=== PATIENT | female | born 1960 ===

== ENCOUNTER 2017-12-30 06:00 | Day surgery (SDC) | payer MEDICARE, MEDICAID ==
[2017-07-06 19:27] VITALS: BMI 27.3
[2017-12-30] MEDS ORDERED: (Novolin R) Insulin Human Regular 100 units/ml vial IV ONE (07:39)
[2017-12-30] MEDS ORDERED: (Novolin R) Insulin Human Regular 100 units/ml vial ONE (07:51)
[2017-12-30] MEDS ORDERED: Sodium Chloride 0.9% 500 ML IV SCH (08:00)
[2017-12-30] MEDS ORDERED: Propofol 10 mg/ml Inj (20 ML) ONE (08:36)
--- NOTE | 2017-12-30 08:38 | CP.SDSHP ---
Same Day Surgery H & P - History Proposed Procedure: EGD Pre-Op Diagnosis: esophageal varices - Previous Medical/Surgical History Cardiac: Hypertension Endocrine/Metabolic: Thyroid Disease, Diabetes Comments: cirrhosis - Allergies Allergies: Allergies No Known Allergies Allergy (Verified 12/29/17 12:42) - Current Medications Current Medications: reviewed, per reconciliation - Physical Exam General Appearance: wdwn nad Vital Signs: Vital Signs 12/30/17 06:37 Temperature 97.1 F L Pulse Rate 59 L Respiratory 19 Rate Blood Pressure 136/64 O2 Sat by Pulse 99 Oximetry Mental Status: Alert & Oriented x3 Heart: WNL Lungs: WNL GI: WNL - {Optional Preform as Required} Abdomen: WNL - Impression Impression: esophageal varices Pt. Evaluated Today:Candidate for Anesthesia & Procedure: Yes - Date & Time Date: 12/30/17 Time: 08:38 Short Stay Discharge - Short Stay Discharge Admitting Diagnosis/Reason for Visit: ANEMIA Disposition: HOME/ ROUTINE
[2017-12-30 10:21] VITALS: BP 117/54; PULSE 62; RESP 17; TEMP 97.3; O2SAT 99
[2017-12-30 10:30] LABS: HEMOGLOBIN 11.2 g/dL (11.0-16.0); MEAN CELL VOLUME 82.5 fL (81.0-99.0); MEAN CORPUSCULAR HEMOGLOBIN 27.9 pg (27.0-31.0); MEAN CORPUSCULAR HGB CONC 33.8 g/dL (33.0-37.0); MEAN PLATELET VOLUME 10.2 fL (7.2-11.7); RBC 4.02 Mil/uL (3.80-5.20); RED CELL DISTRIBUTION WIDTH 14.5 % (11.5-14.5); WHITE BLOOD COUNT 3.4 K/uL (4.8-10.8)
[2017-12-30 10:36] LABS: INR 1.2; PROTHROMBIN TIME 12.7 SECONDS (9.7-12.2)
[2017-12-30 10:46] LABS: BLOOD UREA NITROGEN 10 mg/dL (7-17); GFR AFRICAN-AMERICAN > 60; GFR NON-AFRICAN AMERICAN > 60
[2017-12-30 10:47] LABS: ALB/GLOB RATIO 0.9 (1.0-2.1); ALBUMIN 3.7 g/dL (3.5-5.0); ALT/SGPT 32 U/L (9-52); AST/SGOT 29 U/L (14-36); CALCIUM 8.9 mg/dl (8.6-10.4)
== END 2017-12-30 09:45 | disposition home or self-care (01) ==
LOC: C.ENDO 06:00
PROVIDERS: ATTEND Internal Medicine Gastroenterology
DX: I85.00 Esophageal varices without bleeding (principal); K74.69 Other cirrhosis of liver; K76.6 Portal hypertension; I86.4 Gastric varices
CPT/HCPCS: 36415; 43235; 80053; 82105; 82948; 85027; 85610; 86706; 86708; 87521; J2001; J2704; J7040

== ENCOUNTER 2018-03-25 18:04 | Emergency (ER) | payer MEDICARE, MEDICAID ==
[2018-03-25 18:04] VITALS: BMI 27.3
[2018-03-25 18:34] VITALS: O2SAT 99
[2018-03-25 19:09] LABS: BASO % 0.4 % (0.0-2.0); EOS % 1.3 % (0.0-4.0); HEMOGLOBIN 11.4 g/dL (11.0-16.0); LYMPH % 31.9 % (20.0-40.0); MEAN CELL VOLUME 83.1 fL (81.0-99.0); MEAN CORPUSCULAR HEMOGLOBIN 28.3 pg (27.0-31.0); MEAN PLATELET VOLUME 9.5 fL (7.2-11.7); MONO # 0.4 K/uL (0.0-0.8); MONO % 13.2 % (0.0-10.0); NEUT # 1.7 K/uL (1.8-7.0); NEUT % 53.2 % (50.0-75.0); NRBC % 0.1 % (0.0-2.0); RBC 4.03 Mil/uL (3.80-5.20); RED CELL DISTRIBUTION WIDTH 15.6 % (11.5-14.5); WHITE BLOOD COUNT 3.2 K/uL (4.8-10.8)
[2018-03-25 19:11] LABS: INR 1.2; PROTHROMBIN TIME 13.2 SECONDS (9.7-12.2)
[2018-03-25] MEDS ORDERED: Sodium Chloride 0.9% 1,000 ML IV STA (19:13)
[2018-03-25 19:16] LABS: ALBUMIN 3.9 g/dL (3.5-5.0); ALT/SGPT 30 U/L (9-52); AST/SGOT 34 U/L (14-36); BLOOD UREA NITROGEN 9 mg/dL (7-17); CALCIUM 9.2 mg/dl (8.6-10.4); GFR NON-AFRICAN AMERICAN > 60
[2018-03-25] MEDS ORDERED: Sodium Chloride 0.9% 1,000 ML ONE (19:27)
[2018-03-25] MEDS ORDERED: Iodixanol 320 MG/ML 100 ML BOTTLE IV ONE (19:43)
[2018-03-25 20:18] LABS: SQUAMOUS EPITHIAL 1 /hpf (0-5); URINE AMORPHOUS SEDIMENT MODERATE /ul (<OCC); URINE BILIRUBIN NEGATIVE (NEGATIVE); URINE BLOOD NEGATIVE (NEGATIVE); URINE CLARITY Hazy (Clear); URINE COLOR Yellow (YELLOW); URINE GLUCOSE (UA) 1+ mg/dL (Normal); URINE LEUKOCYTE ESTERASE NEG Leu/uL (Negative); URINE PROTEIN NEGATIVE (NEGATIVE)
[2018-03-25 20:26] LABS: HCG,QUALITATIVE URINE NEGATIVE (NEGATIVE)
--- NOTE | 2018-03-25 21:29 | C.PDOC ---
History Of Present Illness 57 year old female with liver cirrhosis, hepatitis C (treated), DM, and hypothyroid presenting with diffuse abdominal pain (L>R) that began 6 days ago. Associated with lose and frequent stools, 10+ episodes per day. Patient also com plains of chills. Reports recent travel to [place] one month ago for one week and then to [place] where she has been for the past 3 weeks. Patient denies fever, nausea, vomiting, dysuria, hematuria, hematochezia. <Chica Pinto P - Last Filed: 03/25/18 21:49> <Chica Pinto P - Last Filed: 03/25/18 21:49> <Irineo Pina T - Last Filed: 03/25/18 23:45> Time Seen by Provider: 03/25/18 18:53 Chief Complaint (Nursing): Abdominal Pain Past Medical History Vital Signs: Last Vital Signs Temp 98.3 F 03/25/18 18:23 Pulse 73 03/25/18 18:23 Resp 18 03/25/18 18:23 BP 163/77 H 03/25/18 18:23 Pulse Ox 99 03/25/18 21:29 - [facility] Procedures C.A.T. SCAN OF ABDOMEN (09/07/13) INTRODUCTION OF SERUM/TOX/VACCINE INTO MUSCLE, PERC APPROACH (03/08/16) PERCUTAN NEEDLE BX OF LIVER (09/07/13) <Chica Pinto P - Last Filed: 03/25/18 21:49> Vital Signs: Last Vital Signs Temp 98.3 F 03/25/18 18:23 Pulse 73 03/25/18 18:23 Resp 18 03/25/18 18:23 BP 163/77 H 03/25/18 18:23 Pulse Ox 99 03/25/18 18:23 - Medical History PMH: Anemia (on iron infusions for 10 weeks), Arthritis, Back Problems, Depression (NO MEDS), Diabetes (type I and II), Gastritis, Gall Bladder Disease, Hepatitis (C w/cirrhosis), HTN, Hypothyroidism Denies: Fractures, Chronic Kidney Disease Surgical History: Appendectomy, Cholecystectomy, (x3) Denies: Pacemaker - [facility] Procedures C.A.T. SCAN OF ABDOMEN (09/07/13) INTRODUCTION OF SERUM/TOX/VACCINE INTO MUSCLE, PERC APPROACH (03/08/16) PERCUTAN NEEDLE BX OF LIVER (09/07/13) Family History: States: Unknown Family Hx, Diabetes - Social History Hx Tobacco Use: No Hx Alcohol Use: No Hx Substance Use: No - Immunization History Hx Tetanus Toxoid Vaccination: No Hx Influenza Vaccination: Yes Hx Pneumococcal Vaccination: No <Irineo Pina T - Last Filed: 03/25/18 23:45> Review Of Systems Constitutional: Positive for: Chills. Negative for: Fever, Sweats Cardiovascular: Negative for: Chest Pain, Palpitations Gastrointestinal: Positive for: Abdominal Pain, Diarrhea (lose BM). Negative for: Nausea, Vomiting Genitourinary: Negative for: Dysuria, Frequency Musculoskeletal: Negative for: Neck Pain, Shoulder Pain Neurological: Negative for: Weakness, Dizziness <Chica Pinto P - Last Filed: 03/25/18 21:49> Physical Exam - Physical Exam Appears: Non-toxic, No Acute Distress Skin: Normal Color, Warm, Dry Head: Atraumatic, Normacephalic Eye(s): bilateral: Normal Inspection, PERRL, EOMI Throat: Normal Neck: Normal ROM Cardiovascular: Rhythm Regular, No Rhythm Irregular, No Friction Rub, No Murmur, No JVD Respiratory: Normal Breath Sounds, No Decreased Breath Sounds, No Rales, No Rhonchi, No Wheezing Gastrointestinal/Abdominal: Bowel Sounds (normal), Soft, Tenderness (diffuse tenderness), No Guarding, No Rebound, Other (negative McBurney's, negative Stanford, negative CVA tenderness) Extremity: Normal ROM, No Tenderness, No Pedal Edema Neurological/Psych: Oriented x3, Normal Speech, Normal Cranial Nerves (grossly), Normal Motor (grossly) <Chica Pinto P - Last Filed: 03/25/18 21:49> ED Course And Treatment - Laboratory Results Result Diagrams: 03/25/18 18:57 03/25/18 18:57 <Chica Pinto P - Last Filed: 03/25/18 21:49> - Laboratory Results Result Diagrams: 03/25/18 18:57 03/25/18 18:57 O2 Sat by Pulse Oximetry: 99 <Irineo Pina T - Last Filed: 03/25/18 23:45> Medical Decision Making Medical Decision Making: CT - Abd & Pelv. Results CLINICAL HISTORY: Abdominal pain and diarrhea. TECHNIQUE: Multiple axial, coronal, sagittal CT images were obtained through the abdomen and pelvis after administration of intravenous contrast material. 100 ml VISI 320. DLP 684.23. COMMENTS: The liver is markedly lobulated and enlarged consistent with cirrhosis. There is no intra or extrahepatic biliary ductal dilatation. The spleen is mildly enlarged measures 13 cm in length. The patient is status post cholecystectomy. The pancreas is of normal contour and attenuation characteristics. There is no evidence of adrenal mass. Both kidneys are markedly lobulated. There is no evidence of renal mass. There is a 4 mm cyst present in the lower pole of the right kidney. There is no evidence of hydronephrosis or renal calculus. No evidence for appendicitis. There are fluid filled thick wall loops of ileum present consistent with ileitis. Consultation with GI service is recommended and follow-up with colonoscopy, to exclude Crohns disease. No evidence for small or large bowel obstruction. There is no evidence of abdominal ascites or lymphadenopathy. The uterus and ovaries are grossly normal. There is no evidence of intrinsic or extrinsic bladder mass. There is no pelvic ascites or lymphadenopathy. Images of the lung bases show no evidence of pleural or parenchymal mass. There are no pleural effusions. The bony structures are free of lytic or blastic lesions. There are large herniated discs noted at L4-L5 and L5-S1 with biforaminal canal stenosis. IMPRESSION: 1. The liver is markedly lobulated and enlarged consistent with cirrhosis. 2. Mild splenomegaly. 3. Status post cholecystectomy. 4. Both kidneys are markedly lobulated. 5. Cyst present in the lower pole of the right kidney. 6. Ileitis. Consultation with GI service is recommended and follow-up with colonoscopy, to exclude Crohns disease. 7. Large herniated discs noted at L4-L5 and L5-S1 with biforaminal canal stenosis. Seen and examined with resident. 57 y/o F p/w diarrhea. On exam, diffuse mild abdominal tenderness. Discharged on antibiotics, f/u PMD, return to ED for worsening pain, fever, bleeding, or any other problem. <Irineo Pina T - Last Filed: 03/25/18 23:45> Disposition - Disposition Disposition Time: 21:30 <Chica Pinto P - Last Filed: 03/25/18 21:49> <Irineo Pina T - Last Filed: 03/25/18 23:45> - Disposition Referrals: China Moreno MD [Medical Doctor] - Disposition: HOME/ ROUTINE Condition: STABLE Additional Instructions: You have been diagnosed with ileitis, an inflammation of your small bowel, likely due to bacterial infection. You are being discharged on the following medications: Ciprofloxacin 500mg by mouth every 12 hours for 10 days Metronidazole 500mg by mouth every 8 hours for 10 days Please follow up with your PMD within one week. Return to the ED for new or worsening symptoms Prescriptions: Ciprofloxacin 500 mg PO BID #20 ml Metronidazole 500 mg PO TID #30 tablet Instructions: Diarrhea and Traveler's Diarrhea, Adult (DC) Forms: [facility] (Spanish), Work Note - Clinical Impression Clinical Impression: Ileitis
[2018-03-25 22:14] VITALS: BP 154/70; PULSE 89; RESP 20; TEMP 97.8
--- NOTE | 2018-03-26 09:24 | CT ---
Date of service: 03/25/2018 PROCEDURE: CT Abdomen and Pelvis with contrast HISTORY: abd pain, diarrhea COMPARISON: CT abdomen and pelvis without and with IV contrast performed 06/29/14, abdominal ultrasound performed 11/06/17 TECHNIQUE: Contrast dose: 100 mL Visipaque 320 Radiation dose: Total exam DLP = 684.23 mGy-cm. This CT exam was performed using one or more of the following dose reduction techniques: Automated exposure control, adjustment of the mA and/or kV according to patient size, and/or use of iterative reconstruction technique. FINDINGS: LOWER THORAX: No visible consolidation, pleural effusion, or pneumothorax. 1.5 x 2.2 cm fat density (-26 HU) along the right pericardial wall. LIVER: Hepatomegaly. Nodular hepatic contour. Heterogeneous hepatic parenchyma. GALLBLADDER AND BILE DUCTS: Cholecystectomy. PANCREAS: Unremarkable. SPLEEN: Splenomegaly. ADRENALS: Unremarkable. KIDNEYS AND URETERS: The kidneys enhance symmetrically. Mildly lobulated contours. No hydronephrosis or obstructing calculus identified. Too small to characterize right renal hypodensities, statistically likely cysts. VASCULATURE: No aortic aneurysm. No atherosclerotic calcified plaque present. BOWEL: Stomach is nondistended. Lack of oral contrast limits evaluation for bowel pathology. Bowel loops appear within normal limits of caliber without evidence of obstruction. Question presence of minimal small bowel wall thickening, possibly exaggerated due to lack of oral contrast/distension. APPENDIX: The appendix is not identified; correlate for history of appendectomy. No secondary signs of acute appendicitis. PERITONEUM: No significant free fluid. No definite free air. LYMPH NODES: Mesenteric adenopathy measuring up to approximately 9 mm in short axis. BLADDER: Decompressed urinary bladder. REPRODUCTIVE: The uterus is present. Prominent pelvic vasculature, may be related to pelvic congestion syndrome. BONES: Multilevel degenerative changes. Posterior osteophyte at L4-L5 with narrowing of the spinal canal. OTHER FINDINGS: None. IMPRESSION: Question presence of minimal small bowel wall thickening, possibly exaggerated due to lack of oral contrast/distension. Correlate clinically. Hepatomegaly. Heterogeneous hepatic parenchyma. Nodular hepatic contour. Correlate clinically for cirrhosis. Splenomegaly. Mesenteric adenopathy measuring up to approximately 9 mm in short axis. Cholecystectomy. Prominent pelvic vasculature may be related to pelvic congestion syndrome. 1.5 x 2.2 cm fat density nodule along the right pericardial wall. Additional findings as above. Preliminary impression was provided by [facility]. Study marked for PA review.
== END 2018-03-25 22:14 | disposition home or self-care (01) ==
LOC: C.ER 18:04
DX: K52.9 Noninfective gastroenteritis and colitis, unspecified (principal)
CPT/HCPCS: 74177; 80053; 81001; 82140; 83690; 83735; 84100; 84703; 85025; 85610; 85730; 96360; 96361; 99285; J7030; Q9967

== ENCOUNTER 2018-07-05 08:58 | Emergency (ER) | payer MEDICARE, MEDICAID ==
[2018-07-05 08:58] VITALS: BMI 27.3
[2018-07-05] MEDS ORDERED: Sodium Chloride 0.9% 1,000 ML IV ONE (09:53)
--- NOTE | 2018-07-05 09:53 | C.PDOC ---
History Of Present Illness 57 year old female with liver cirrhosis, hepatitis C, DM, and hypothyroid presenting with upper and mid-abdominal pain that started yesterday. She reports associated nausea and vomiting. She also complains of chills. She reports last bowel movement was yesterday, normal and non-bloody. Patient denies fever, dysuria, hematuria. PCP: China Moreno GI: Jacques Nolasco Time Seen by Provider: 07/05/18 09:37 Chief Complaint (Nursing): Abdominal Pain History Per: Patient History/Exam Limitations: no limitations Onset/Duration Of Symptoms: Days Current Symptoms Are (Timing): Still Present Severity: Moderate Associated Symptoms: Chills, Nausea, Vomiting. denies: Fever, Urinary Symptoms Past Medical History Reviewed: Historical Data, Nursing Documentation, Vital Signs Vital Signs: Last Vital Signs Temp 98.7 F 07/05/18 09:05 Pulse 110 H 07/05/18 09:05 Resp 20 07/05/18 09:05 BP 124/83 07/05/18 09:05 Pulse Ox 98 07/05/18 09:05 - Medical History PMH: Anemia, Arthritis, Back Problems, Depression, Diabetes (type I and II), Gastritis, Gall Bladder Disease, Hepatitis (C w/cirrhosis), HTN, Hypothyroidism Denies: Fractures, Chronic Kidney Disease Surgical History: Appendectomy, Cholecystectomy, (x3) Denies: Pacemaker - [facility] Procedures C.A.T. SCAN OF ABDOMEN (09/07/13) INTRODUCTION OF SERUM/TOX/VACCINE INTO MUSCLE, PERC APPROACH (03/08/16) PERCUTAN NEEDLE BX OF LIVER (09/07/13) Family History: States: Diabetes - Social History Hx Tobacco Use: No Hx Alcohol Use: No Hx Substance Use: No - Immunization History Hx Tetanus Toxoid Vaccination: No Hx Influenza Vaccination: Yes Hx Pneumococcal Vaccination: No Review Of Systems Except As Marked, All Systems Reviewed And Found Negative. Constitutional: Positive for: Chills. Negative for: Fever Gastrointestinal: Positive for: Nausea, Vomiting, Abdominal Pain Genitourinary: Negative for: Dysuria, Hematuria Physical Exam - Physical Exam Appears: Non-toxic, No Acute Distress Skin: Normal Color, Warm, Dry, No Diaphoretic, No Jaundice, No Cyanotic Head: Atraumatic, Normacephalic Eye(s): bilateral: Normal Inspection, EOMI Nose: Normal Oral Mucosa: Moist Neck: Supple Chest: Symmetrical Cardiovascular: Rhythm Regular Respiratory: Normal Breath Sounds, No Rales, No Rhonchi, No Wheezing Gastrointestinal/Abdominal: Normal Exam, Soft, Tenderness (epigastric), No Mass, No Guarding, No Rebound Neurological/Psych: Oriented x3, Normal Speech ED Course And Treatment - Laboratory Results Result Diagrams: 07/05/18 11:04 07/05/18 11:04 O2 Sat by Pulse Oximetry: 98 (RA) Pulse Ox Interpretation: Normal - CT Scan/US CT Abdomen/Pelvis Other Rad Studies (CT/US): Read By Radiologist, Radiology Report Reviewed CT/US Interpretation: Accession No. : [id number]. Patient Name / ID : MARIAN YOUNG / [id number]. Exam Date : 07/05/2018 12:23:24 ( Approved ). Study Comment : Sex / Age : F / 57Y. Creator : Becky Garcia. Dictator : Santiago Del Toro MD. Credit Collection Associate : Information Systems Manager : Santiago Del Toro MD. Approver2 : Report Date : 07/05/2018 12:35:45. My Comment : . Date of service: 07/05/2018. PROCEDURE: CT Abdomen and Pelvis with contrast. HISTORY: abd pain upper, epgiastric. COMPARISON: 03/25/2018. TECHNIQUE: Contrast dose: 100 mL Visipaque 320. Radiation dose: Total exam DLP = 484.08 mGy-cm. This CT exam was performed using one or more of the following dose reduction techniques: Automated exposure control, adjustment of the mA and/or kV according to patient size, and/or use of iterative reconstruction technique. FINDINGS: LOWER THORAX: Unremarkable. LIVER: Nodular contour consistent with hepatic cirrhosis. Normal size and attenuation. No mass. No biliary ductal dilatation. GALLBLADDER AND BILE DUCTS: Status post cholecystectomy. PANCREAS: Unremarkable. No gross lesion or ductal dilatation. SPLEEN: Upper limits normal in size. No mass. ADRENALS: Unremarkable. No mass. KIDNEYS AND URETERS: Unremarkable. No hydronephrosis. No solid mass. VASCULATURE: Unremarkable. No aortic aneurysm. No aortic atherosclerotic calcification or mural plaque present. BOWEL: Unremarkable. No obstruction. No gross mural thickening. APPENDIX: Not identified. No secondary findings to suggest acute appendicitis. PERITONEUM: Unremarkable. No free fluid. No free air. LYMPH NODES: Few mildly enlarged retroperitoneal nodes. Numerous subcentimeter nodes within the small bowel mesenteric common nonspecific. No pelvic lymphadenopathy. BLADDER: Unremarkable. REPRODUCTIVE: Normal uterus. BONES: No acute fracture. OTHER FINDINGS: None. IMPRESSION: No acute abnormality. Findings consistent with hepatic cirrhosis. Status post cholecystectomy. Minimal retroperitoneal lymph adenopathy. Shotty subcentimeter nodes in the small bowel mesenteric. No change from 03/25/2018. Medical Decision Making Medical Decision Making: Impression: Abdominal Pain Plan: * Labs * UA * CT - Abd & Pelv. * Pepcid IV * Reglan IV * Toradol IV * IV Fluids Labs reviewed with elevated LFT and bilrubin, not acute. Glucose also elevated. No leukocytosis. CT reviewed shows no acute surgical pathology or infectious process. On re-evaluation, the patient was resting comfortable on stretcher in no distress and reported feeling better. She had no fever and stable vital signs. Abdomen soft without guarding or distension. I discussed results with patient and provided copy of CT and lab results. Plan is to discharge home and have patient follow up with PCP and GI Disposition Counseled Patient/Family Regarding: Diagnosis, Need For Followup, Rx Given - Disposition Referrals: Ramu Flores MD [Staff Provider] - China Moreno MD [Medical Doctor] - Disposition: HOME/ ROUTINE Disposition Time: 14:04 Condition: IMPROVED Additional Instructions: Por favor, tome la medicina segn sea necesario para el dolor seguimiento con burch mdico Prescriptions: Naproxen [Naprosyn] 1 tab PO BID PRN #25 tab PRN Reason: Pain Pantoprazole [Protonix EC Tab] 20 mg PO DAILY #30 ect Instructions: Acute Abdomen (Belly Pain), Adult (DC) Forms: [employer] (Icelandic) Print Language: RUSSIAN - POA Present On Arrival: Poor Glycemic Control - Clinical Impression Clinical Impression: Abdominal pain - PA / VENEER SORTER / Resident Statement MD/DO has reviewed & agrees with the documentation as recorded. - Scribe Statement The provider has reviewed the documentation as recorded by the Scribe Jacquie Lopez Provider Attestation All medical record entries made by the Harryibrajinder were at my direction and personally dictated by me. I have reviewed the chart and agree that the record accurately reflects my personal performance of the history, physical exam, medical decision making, and the department course for this patient. I have also personally directed, reviewed, and agree with the discharge instructions and disposition.
[2018-07-05] MEDS ORDERED: Sodium Chloride 0.9% 1,000 ML ONE (10:39)
[2018-07-05 11:16] LABS: BASO % 0.3 % (0.0-2.0); EOS % 0.2 % (0.0-4.0); HEMOGLOBIN 12.1 g/dL (11.0-16.0); LYMPH # 0.6 K/uL (1.0-4.3); LYMPH % 13.9 % (20.0-40.0); MEAN CELL VOLUME 83.4 fL (81.0-99.0); MEAN CORPUSCULAR HEMOGLOBIN 27.7 pg (27.0-31.0); MEAN CORPUSCULAR HGB CONC 33.2 g/dL (33.0-37.0); MEAN PLATELET VOLUME 10.5 fL (7.2-11.7); MONO # 0.3 K/uL (0.0-0.8); MONO % 7.8 % (0.0-10.0); NEUT # 3.2 K/uL (1.8-7.0); NEUT % 77.8 % (50.0-75.0); RBC 4.37 Mil/uL (3.80-5.20); RED CELL DISTRIBUTION WIDTH 14.7 % (11.5-14.5); WHITE BLOOD COUNT 4.1 K/uL (4.8-10.8)
[2018-07-05 11:31] LABS: INR 1.2; PROTHROMBIN TIME 13.5 SECONDS (9.7-12.2)
[2018-07-05 11:35] LABS: ALB/GLOB RATIO 1.1 (1.0-2.1); ALT/SGPT 49 U/L (9-52); AMYLASE 83 U/L (30-110); AST/SGOT 66 U/L (14-36); BLOOD UREA NITROGEN 9 mg/dL (7-17); CALCIUM 8.4 mg/dl (8.6-10.4); GFR NON-AFRICAN AMERICAN > 60; LIPASE 175 U/L (23-300)
[2018-07-05 11:42] LABS: SQUAMOUS EPITHIAL 7 /hpf (0-5); URINE BACTERIA RARE (<OCC); URINE BILIRUBIN NEGATIVE (NEGATIVE); URINE BLOOD NEGATIVE (NEGATIVE); URINE CLARITY Clear (Clear); URINE COLOR Yellow (YELLOW); URINE GLUCOSE (UA) 3+ mg/dL (Normal); URINE HYALINE CAST 0-2 /lpf (0-2); URINE LEUKOCYTE ESTERASE NEG Leu/uL (Negative); URINE PROTEIN 1+ mg/dL (NEGATIVE); URINE UROBILINOGEN NORMAL mg/dL (0.2-1.0)
[2018-07-05] MEDS ORDERED: Iodixanol 320 MG/ML 100 ML BOTTLE IV ONE (11:58)
--- NOTE | 2018-07-05 13:53 | CT ---
Date of service: 07/05/2018 PROCEDURE: CT Abdomen and Pelvis with contrast HISTORY: abd pain upper, epgiastric COMPARISON: 03/25/2018 TECHNIQUE: Contrast dose: 100 mL Visipaque 320 Radiation dose: Total exam DLP = 484.08 mGy-cm. This CT exam was performed using one or more of the following dose reduction techniques: Automated exposure control, adjustment of the mA and/or kV according to patient size, and/or use of iterative reconstruction technique. FINDINGS: LOWER THORAX: Unremarkable. LIVER: Nodular contour consistent with hepatic cirrhosis. Normal size and attenuation. No mass. No biliary ductal dilatation. GALLBLADDER AND BILE DUCTS: Status post cholecystectomy PANCREAS: Unremarkable. No gross lesion or ductal dilatation. SPLEEN: Upper limits normal in size. No mass. ADRENALS: Unremarkable. No mass. KIDNEYS AND URETERS: Unremarkable. No hydronephrosis. No solid mass. VASCULATURE: Unremarkable. No aortic aneurysm. No aortic atherosclerotic calcification or mural plaque present. BOWEL: Unremarkable. No obstruction. No gross mural thickening. APPENDIX: Not identified. No secondary findings to suggest acute appendicitis. PERITONEUM: Unremarkable. No free fluid. No free air. LYMPH NODES: Few mildly enlarged retroperitoneal nodes. Numerous subcentimeter nodes within the small bowel mesenteric common nonspecific. No pelvic lymphadenopathy. BLADDER: Unremarkable. REPRODUCTIVE: Normal uterus BONES: No acute fracture. OTHER FINDINGS: None. IMPRESSION: No acute abnormality. Findings consistent with hepatic cirrhosis. Status post cholecystectomy. Minimal retroperitoneal lymph adenopathy. Shotty subcentimeter nodes in the small bowel mesenteric. No change from 03/25/2018.
[2018-07-05 14:28] VITALS: BP 111/72; PULSE 75; RESP 19; TEMP 99
[2018-07-05 15:15] VITALS: O2SAT 98
== END 2018-07-05 14:29 | disposition home or self-care (01) ==
LOC: C.ER 08:58
DX: R10.13 Epigastric pain (principal)
CPT/HCPCS: 74177; 80053; 81001; 82150; 83690; 85025; 85610; 85730; 96361; 96374; 96375; 99284; J1885; J2765; J7030; Q9967